=== PATIENT | female | born 1995 | race African-American/Black ===

== ENCOUNTER 2017-02-17 13:34 | Emergency (ER) | payer OTHER ==
[~2017-02-17] VITALS: Ht 160 cm; Wt 127.0 kg
[2017-02-17] MEDS ORDERED: CYCL10TA PO (16:10)
[2017-02-17] MEDS ORDERED: IBUP80TA PO (16:10)
[2017-02-17 16:14] VITALS: BP 130/82
[2017-02-17] MEDS ORDERED: ADACEL/BOOSTRIX VACCINE (DIPHTH/PERTUSS/ACELL/TETANUS)0.5ML SYR (90715) IM ONE (16:15)
--- NOTE | 2017-02-17 16:15 | REP ---
CHEST X-RAY PA AND LATERAL: 02/17/2017: Clinical history: Trauma. No prior studies. The patient does have a sternal series this date. Findings: Two-view show the lungs well inflated and clear. The heart, mediastinal and hilar contours are normal. Visualized bones are intact without compression deformity in the spine. There is no free air under the diaphragm. Airway intact. Impression: 1. No acute cardiopulmonary change. Lung nails clear. No effusion or pneumothorax. No focal bone abnormality. Signed by Darío Alicia MD 02/17/2017 05:26 P
--- NOTE | 2017-02-17 16:19 | REP ---
STERNUM SERIES: 02/17/2017: Clinical history: Trauma. Comparison: Chest x-ray this date. Findings: Two lateral views and two oblique views were provided. Lateral views are somewhat limited due to body habitus considerations. I cannot confirm a cortical depression of the sternum on these images but it would be difficult to completely exclude that possibility due to technical factors related to body habitus. Medial clavicles and the manubrial clavicular joints grossly intact. The visualized ribs were unremarkable. Impression: 1. Negative sternum series, somewhat limited exam due to body habitus considerations. Signed by Darío Alicia MD 02/17/2017 05:26 P
== END 2017-02-17 16:23 | disposition home or self-care (01) ==
LOC: M ED 15:03
DX: S20.319A Abrasion of unspecified front wall of thorax, initial encounter (principal); V43.52XA Car driver injured in collision with other type car in traffic accident, initial encounter; Y92.410 Unspecified street and highway as the place of occurrence of the external cause; Y93.9 Activity, unspecified; Y99.9 Unspecified external cause status